=== PATIENT | male | born 1980 | race Caucasian/White ===

== ENCOUNTER 2023-07-21 11:46 | Emergency (ER) | payer SELFPAY ==
[2023-07-21] MEDS ORDERED: dexAMETHasone 10 MG/ML VIAL ONE (12:16)
[2023-07-21] MEDS ORDERED: DIAZEPAM 5 MG TABLET ONE (12:16)
[2023-07-21] MEDS ORDERED: HYDROCODONE/APAP 5/325 MG TAB ONE (12:16)
--- NOTE | 2023-07-21 13:12 | ER ---
Nurse's Notes [facility] Name: Juno Vincent Age: 43 yrs Sex: Male : 1980 Arrival Date: 07/21/2023 Time: 11:46 Bed 11 Private MD: Diagnosis: Sciatica, right side Presentation: 07/20 11:59 Chief complaint: Patient states: Right lower back pain that radiates to leg. Onset a nj1 couple days ago, has worsen, took 3 advils this morning with no significant relief. Denies known injury. 11:59 Coronavirus screen: Vaccine status: Patient reports being unvaccinated. Ebola Screen: nj1 Patient denies travel to an Ebola-affected area in the 21 days before illness onset. Initial Sepsis Screen: Does the patient meet any 2 criteria? No. Patient's initial sepsis screen is negative. Does the patient have a suspected source of infection? No. Patient's initial sepsis screen is negative. Risk Assessment: Do you want to hurt yourself or someone else? Patient reports no desire to harm self or others. Onset of symptoms was July 2023. 11:59 Method Of Arrival: Ambulatory [facility] 11:59 Acuity: TOÑA 3 [facility] Triage Assessment: 12:08 General: Appears in no apparent distress. uncomfortable, Behavior is calm, cooperative, nj1 appropriate for age. Pain: Complains of pain in back Pain radiates to right leg Pain currently is 9 out of 10 on a pain scale. Alleviated by repositioning. Neuro: Level of Consciousness is awake, alert, obeys commands, Oriented to person, place, time, situation. Cardiovascular: Patient's skin is warm and dry. Respiratory: Airway is patent Respiratory effort is even, unlabored. Musculoskeletal: Reports pain in back and right leg since a couple days ago. Pain is 9 out of 10 on a pain scale. Historical: - Allergies: 12:08 No Known Allergies; nj1 - Home Meds: 13:06 None [Active]; tl4 - PMHx: 12:08 None; nj1 - PSHx: 12:08 None; nj1 - Immunization history:: Client reports having NOT received the Covid vaccine. - Infectious Disease History:: Denies. - Social history:: Smoking status: Patient reports the use of cigarette tobacco products, smokes one pack cigarettes per day. Screenin:07 [facility] ED Fall Risk Assessment (Adult) History of falling in the last 3 months, tl4 including since admission No falls in past 3 months (0 pts) Confusion or Disorientation No (0 pts) Intoxicated or Sedated No (0 pts) Impaired Gait No (0 pts) Mobility Assist Device Used No (0 pt) Altered Elimination No (0 pt) Score/Fall Risk Level 0 - 2 = Low Risk Oriented to surroundings, Maintained a safe environment, Educated pt \T\ family on fall prevention, incl call for assistance when getting out of bed, Assessed \T\ reinforced patient's understanding of fall precautions, Hourly rounding (assess needs \T\ fall precautionary measures) done, Used ambulatory aids as needed (educated on \T\ assisted with), Used gait belt as appropriate. Abuse screen: Denies threats or abuse. Denies injuries from another. Nutritional screening: No deficits noted. Tuberculosis screening: No symptoms or risk factors identified. Assessment: 13:05 General: Appears uncomfortable, Behavior is calm, cooperative. Pain: Complains of pain tl4 in back. Neuro: Level of Consciousness is awake, alert, obeys commands, Oriented to person, place, time, situation, Moves all extremities. Speech is normal, Facial symmetry appears normal, Denies weakness paresthesias numbness. Cardiovascular: Capillary refill < 3 seconds Patient's skin is warm and dry. Respiratory: Airway is patent Respiratory effort is even, unlabored, Respiratory pattern is regular, symmetrical, Breath sounds are clear bilaterally. GI: No deficits noted. No signs and/or symptoms were reported involving the gastrointestinal system. : No deficits noted. No signs and/or symptoms were reported regarding the genitourinary system. EENT: No deficits noted. No signs and/or symptoms were reported regarding the EENT system. Derm: No deficits noted. No signs and/or symptoms reported regarding the dermatologic system. Musculoskeletal: Reports pain in back. 14:02 Reassessment: No changes from previously documented assessment. Patient and/or family tl4 updated on plan of care and expected duration. Pain level reassessed. Patient is alert, oriented x 3, equal unlabored respirations, skin warm/dry/pink. Vital Signs: 11:59 BP 124 / 73; Pulse 79; Resp 18; Temp 97.6(TE); Pulse Ox 96% on R/A; Weight 77.11 kg; nj1 Height 5 ft. 11 in. ; Pain 9/10; 13:06 BP 110 / 62; Pulse 62; Resp 16; Pulse Ox 100% on R/A; Pain 6/10; tl4 14:02 BP 112 / 70; Pulse 63; Resp 19; Temp 97.9(TE); Pulse Ox 98% on R/A; Pain 4/10; tl4 11:59 Body Mass Index 23.71 (77.11 kg, 180.34 cm) nj1 11:59 Pain Scale: Adult nj1 13:06 Pain Scale: Adult tl4 14:02 Pain Scale: Adult tl4 Yanni Coma Score: 13:06 Eye Response: spontaneous(4). Motor Response: obeys commands(6). Verbal Response: tl4 oriented(5). Total: 15. ED Course: 11:50 Patient arrived in ED. ra3 11:55 [facility]C [facility] kb 11:55 Ashok Collado MD is Attending Physician. kb 12:08 Triage completed. nj1 12:08 Arm band placed on. nj1 12:58 Chinmay Hartman, RN is Primary Nurse. tl4 13:07 Patient has correct armband on for positive identification. Bed in low position. Call tl4 light in reach. Side rails up X 1. Provided Education on: ED process. Client placed on continuous cardiac and pulse oximetry monitoring. NIBP monitoring applied. Door closed. Noise minimized. Lights dimmed. Moved to private room. Head of bed lowered. 13:08 No provider procedures requiring assistance completed. Patient did not have IV access tl4 during this emergency room visit. Administered Medications: 12:20 Drug: Diazepam PO 5 mg PO once Route: PO; nj1 13:04 Follow up: Response: No adverse reaction; Pain is decreased tl4 12:20 Drug: HYDROcodone-acetaminophen PO 5 mg-325 mg 1 tabs PO once Route: PO; nj1 13:04 Follow up: Response: No adverse reaction; Pain is decreased tl4 12:21 Drug: Dexamethasone IM 10 mg IM once Route: IM; Site: right deltoid; nj1 13:04 Follow up: Response: No adverse reaction; Pain is decreased tl4 Medication: 13:07 VIS not applicable for this client. tl4 Outcome: 13:11 Discharge ordered by . kb 14:02 Discharged to home ambulatory, tl4 14:02 Condition: stable 14:02 Discharge instructions given to patient, Instructed on discharge instructions, follow up and referral plans. medication usage, Demonstrated understanding of instructions, follow-up care, medications, Prescriptions given X 3, 14:03 Patient left the ED. tl4 Signatures: Joanna Neal, RESIDENTIAL PLUMBER-C RESIDENTIAL PLUMBER-CkSabina Don RN RN nj1 Chinmay Hartman RN RN tl4 Nenita Alcaraz 3
--- NOTE | 2023-07-21 13:12 | EDPHYS ---
Physician Documentation [facility] Name: Juno Vincent Age: 43 yrs Sex: Male : 1980 Arrival Date: 07/21/2023 Time: 11:46 Bed 11 Private MD: YADIRA Physician Ashok Collado HPI: 07/20 13:58 This 43 yrs old Male presents to ER via Ambulatory with complaints of Back Pain - to kb leg pain. 13:59 Pt is a 43 year old male who presents for right low back pain that started 3 days ago. kb reports pain radiates down to calf. Denies numbness, tingling, injury, bowel/bladder incontinence. Pain worse with movement. . Historical: - Allergies: 12:08 No Known Allergies; nj1 - Home Meds: 13:06 None [Active]; tl4 - PMHx: 12:08 None; nj1 - PSHx: 12:08 None; nj1 - Immunization history:: Client reports having NOT received the Covid vaccine. - Infectious Disease History:: Denies. - Social history:: Smoking status: Patient reports the use of cigarette tobacco products, smokes one pack cigarettes per day. ROS: 13:56 Constitutional: As per HPI kb Exam: 13:56 Constitutional: This is a well developed, well nourished patient who is awake, alert, kb and in no acute distress. Head/Face: Normocephalic, atraumatic. ENT: Moist Mucous membranes Cardiovascular: Regular rate Respiratory: Respirations even and unlabored. No increased work of breathing. Talking in full sentences Abdomen/GI: Soft, non-tender. No distention Skin: Warm, dry with normal turgor. Normal color. MS/ Extremity: Pulses equal, no cyanosis. Neurovascular intact. Full, normal range of motion. Neuro: Awake and alert, GCS 15, oriented to person, place, time, and situation. Moves all extremities. Normal gait. 13:56 Back: pain, that is moderate, right buttock , ROM is painful, Vital Signs: 11:59 BP 124 / 73; Pulse 79; Resp 18; Temp 97.6(TE); Pulse Ox 96% on R/A; Weight 77.11 kg; nj1 Height 5 ft. 11 in. ; Pain 9/10; 13:06 BP 110 / 62; Pulse 62; Resp 16; Pulse Ox 100% on R/A; Pain 6/10; tl4 14:02 BP 112 / 70; Pulse 63; Resp 19; Temp 97.9(TE); Pulse Ox 98% on R/A; Pain 4/10; tl4 11:59 Body Mass Index 23.71 (77.11 kg, 180.34 cm) nj1 11:59 Pain Scale: Adult nj1 13:06 Pain Scale: Adult tl4 14:02 Pain Scale: Adult tl4 Yanni Coma Score: 13:06 Eye Response: spontaneous(4). Motor Response: obeys commands(6). Verbal Response: tl4 oriented(5). Total: 15. MDM: 11:55 Patient medically screened. kb 13:57 Differential diagnosis: sprain, Ureterolithiasis vertebral fracture, herniated disc, kb sciatica. Data reviewed: vital signs, nurses notes. Test considered but Not performed: CT: CT stone considered, but pt states this pain is different than previous kidney stone and he doesn't want the CT due to cost. Counseling: I had a detailed discussion with the patient and/or guardian regarding the historical points, exam findings, and any diagnostic results supporting the discharge/admit diagnosis, the need for outpatient follow up, a family practitioner, to return to the emergency department if symptoms worsen or persist or if there are any questions or concerns that arise at home. Administered Medications: 12:20 Drug: Diazepam PO 5 mg PO once Route: PO; [facility] 13:04 Follow up: Response: No adverse reaction; Pain is decreased tl4 12:20 Drug: HYDROcodone-acetaminophen PO 5 mg-325 mg 1 tabs PO once Route: PO; nj1 13:04 Follow up: Response: No adverse reaction; Pain is decreased tl4 12:21 Drug: Dexamethasone IM 10 mg IM once Route: IM; Site: right deltoid; nj1 13:04 Follow up: Response: No adverse reaction; Pain is decreased tl4 Disposition Summary: 07/21/23 13:11 Discharge Ordered Notes: Location: Home kb Condition: Stable kb Diagnosis - Sciatica, right side kb Followup: kb - With: Emergency Department - When: As needed - Reason: Worsening of condition Followup: kb - With: Private Physician - When: 2 - 3 days - Reason: Recheck today's complaints, Continuance of care, Re-evaluation by your physician Discharge Instructions: - Discharge Summary Sheet kb - Sciatica, [id number] kb - Back Exercises, [id number] kb Forms: - Medication Reconciliation Form kb - Thank You Letter kb - Antibiotic Education kb - Prescription Opioid Use kb - Patient Portal Instructions kb - Leadership Thank You Letter kb Prescriptions: - Prednisone 20 mg Oral Tablet - take 1 tablet ORAL route once daily for 5 days; 5 tablet; Refills: 0, Product kb Selection Permitted - Diclofenac Sodium 75 mg Oral tablet, delayed release (enteric coated) - take 1 tablet ORAL route 2 times per day As needed; 30 tablet; Refills: 0, kb Product Selection Permitted - orphenadrine citrate 100 mg Oral Tablet Sustained Release - take 1 tablet ORAL route 2 times per day As needed; 20 tablet; Refills: 0, kb Product Selection Permitted Signatures: Joanna Neal, MAIRA-C MAIRA-Sabina Velásquez, RN RN nj1 Chinmay Hartman RN RN tl4
[2023-07-21 17:08] VITALS: BP 112/70; TEMP 97.9; O2SAT 98
== END 2023-07-21 14:03 | disposition home or self-care (01) ==
LOC: ER 11:46
DX: M54.31 Sciatica, right side (principal)
CPT/HCPCS: 96372; 99284; J1100